=== PATIENT | male | born 1960 | race Caucasian/White ===

== ENCOUNTER 2017-12-04 14:02 | Inpatient (IN) | payer OTHER ==
[~2017-12-04] VITALS: Ht 170.2 cm; Wt 103.9 kg
--- NOTE | ~2017-12-04 | HC ---
[facility] [place] [address] [place] [address] CONSULTATION Name: SALVADOR AYALA Room #: 243-P [facility] IN M.R.#: [id number] Admission: 12/04/17 Attend Phys: Moose Cavanaugh MD Discharge: Date of : 64 Report #: [id number] THIS REPORT FOR: //name// CC: Moose Parker DATE OF SERVICE: 12/05/2017 REFERRAL PHYSICIAN: Dr. Cavanaugh. REASON FOR REFERRAL: Dyspnea. HISTORY OF PRESENT ILLNESS: The patient is a 57-year-old white male who was brought to the Emergency Room after he was found to be hypersomnolent and unresponsive at his facility. A pulmonary consultation was requested. The patient resides at a [facility]. He has known severe COPD. He was doing fairly well until the day prior. The day of presentation, he was found to be hypersomnolent and eventually unresponsive. In the ER, the patient was found to be profoundly hypercapnic with respiratory acidosis. He was placed on BiPAP. Over time, he has improved with improvement in mental status, being more weight. Otherwise, he denies any fever, night sweats or chills, chest pain, productive cough. PAST MEDICAL HISTORY: Notable for COPD, severe impairment, paranoid schizophrenia, personality disorder, history of psychosis, insomnia, tobacco abuse, hypertension, allergic rhinitis. PAST SURGICAL HISTORY: Unremarkable. ALLERGIES: PENICILLIN, REACTIONS NOT SPECIFIED. HOME MEDICATIONS: Lists are reviewed. FAMILY HISTORY: Unknown. SOCIAL HISTORY: Tobacco use as mentioned above, no alcohol use. He currently resides at the [facility]. REVIEW OF SYSTEMS: As mentioned above, otherwise 10-point system review negative. PHYSICAL EXAMINATION: [facility] [address] [place] [address] CONSULTATION Name: SALVADOR AYALA Room #: 243-P ADM IN M.R.#: [id number] Admission: 12/04/17 Attend Phys: Moose Cavanaugh MD Discharge: Date of : 64 Report #: [id number] GENERAL: He is now awake, appears mildly dyspneic. VITAL SIGNS: Temperature is 97 degrees Fahrenheit, pulse is 100, respiratory rate is 20, blood pressure 130/65 mmHg and saturation 96%. HEENT: Normocephalic, atraumatic. NECK: Supple, without any lymphadenopathy or thyromegaly. CHEST: Breath sounds are decreased and moderate expiratory wheezes. CARDIOVASCULAR: Normal S1, S2. No murmurs or gallop. There is no JVD. There is no carotid bruit. Pulses are 2+/4+ bilaterally. ABDOMEN: Obese, soft, nontender, no organomegaly or masses felt. GENITOURINARY: Deferred. RECTAL: Deferred. EXTREMITIES: There is no edema, cyanosis or clubbing. LABORATORY DATA: Chest x-ray is clear. Electrolytes unremarkable. Creatinine 0.8. WBC 7600, hemoglobin is 14, platelets are normal. Arterial blood gas on admission revealed pH 7.21, pCO2 94, pO2 70 on 5 liters of O2. IMPRESSION: 1. Bhqoh-rq-aogkuoq hypercapnic hypoxic respiratory failure in this 57-year-old white male. He has known severe pulmonary impairment and severe chronic obstructive pulmonary disease. Exacerbation of chronic obstructive pulmonary disease is likely. It is unclear if he may have underlying sleep disordered breathing. Chest x-ray is clear without obvious evidence for infectious process. 2. Bipolar disorder. 3. Tobacco abuse. RECOMMENDATION: Agree with current treatment, continue BiPAP p.r.n. The patient will benefit from outpatient evaluation for possible sleep disorders. Corticosteroids and bronchodilators along with antibiotics are recommended. DVT and GI prophylaxis is also recommended. Thank you for this consultation. <ELECTRONICALLY SIGNED> By: Sreedhar Bajwa MD 12/06/17 1654 1202 1632 Sreedhar Bajwa MD /nt
--- NOTE | ~2017-12-04 | HC ---
[facility] [place] [address] CONSULTATION Name: SALVADOR AYALA Room #: 243-P ADM IN M.R.#: [id number] Admission: 12/04/17 Attend Phys: Moose Cavanaugh MD Discharge: Date of : 64 Report #: [id number] THIS REPORT FOR: //name// CC: Moose Parker DATE OF SERVICE: 12/05/2017 HISTORY OF PRESENT ILLNESS: This is a gentleman who was admitted from [facility]. The patient has had a change in mental status that necessitated him coming to the facility for further evaluation. The ABG showed a pH of 7.21. He was unresponsive and somnolent. He has been managed for COPD exacerbation. The last few days, he has been off his psychotropic regimen. PAST PSYCHIATRIC HISTORY: The patient does have history of schizoaffective disorder. He notes he has not had hallucinations in a number of years, but has continued to panchal paranoid ideations at times. More regularly, he has had mood swings consistent with bipolar disorder. The patient does recall a suicide attempt as an adolescent when he was living in [place], [place]. There have also been periods of inpatient psychiatric treatment. More recently, he has had a public property administrator overseeing his wellbeing. PAST MEDICAL HISTORY: Chronic obstructive pulmonary disease; diabetes, which he tells me is new; hypertension. 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 History of drug use, but denies any active alcohol or substance use disorder in quite some time. Unfortunately, he is a bit frustrated with [employer]. He feels that people do not like him there and states that he believes people are taking his possessions. MENTAL STATUS EXAMINATION: male, casually dressed, stable mood, some blunting of affect. No suicidal ideation, no homicidal ideation, no hallucinations. No paranoid delusions. Insight and judgment fair. DIAGNOSIS: Schizoaffective disorder. RECOMMENDATIONS: Would restart Depakote, would try to clarify his home medication regimen as per [facility]. Typically, we will check a valproic acid level, but I imagined the days he has been off it, would have resulted in significant decrease in his level. It appears he may [facility] [address] [place] [address] CONSULTATION Name: SALVADOR AYALA Room #: 243-P [facility] IN M.R.#: [id number] Admission: 12/04/17 Attend Phys: Moose Cavanaugh MD Discharge: Date of : 64 Report #: [id number] have diabetes on the basis of the hemoglobin A1c; in which case, may want to change from Zyprexa to an agent that has less impact on insulin resistance. <ELECTRONICALLY SIGNED> By: Mike Manuel MD 12/07/17 1617 1433 1844 Mike Manuel MD /maria g
--- NOTE | ~2017-12-04 | 2DMMODE ---
[facility] [employer] [place] [address] 2 D/M-MODE ECHOCARDIOGRAM Name: SALVADOR AYALA Room #: 243-P ADM IN M.R.#: [id number] Admission: 12/04/17 Attend Phys: Moose Cavanaugh MD Discharge: Date of : 64 Date of Service: 12/07/17917 Report #: [id number] THIS REPORT FOR: //name// APPROVED REPORT Study performed: 12/07/2017 08:01:19 EXAM: Comprehensive 2D, Doppler, and color-flow Echocardiogram Patient Location: ICU Room #: 243 Status: routine BSA: 2.14 HR: 86 bpm BP: 144/99 mmHg Other Information Study Quality: Adequate Indications COPD Diabetes Dyspnea Hypertension/HDD Echo Enhancing Agent Indication: Endocardial border delineation Agent(s) / Amount(s) Used: Optison 4 cc 2D Dimensions RVDd: 39.83 mm LVEF(%): 38.42 (>50%) IVSd: 11.54 (7-11mm) LVOT Diam: 22.11 (18-24mm) LVDd: 60.46 mm PWd: 12.74 (7-11mm) Ascending Ao: 36.38 (22-36mm) LVDs: 49.00 (25-40mm) Aortic Root: 42.36 mm IVC: 20.00 mm Christie's LVEF: 38.42 % Volumes Left Atrial Volume (Systole) Single Plane 4CH: 35.45 mL Single Plane 2CH: 43.17 mL LA ESV Index: 20.00 mL/m2 Aortic Valve AoV Peak Wes.: 1.79 m/s AO Peak Gr.: 12.78 mmHg LVOT Max P.04 mmHg [facility] [place] [address] 2 D/M-MODE ECHOCARDIOGRAM Name: SALVADOR AYALA Room #: 243-P [facility] IN .R.#: [id number] Admission: 12/04/17 Attend Phys: Moose Cavanaugh MD Discharge: Date of : 64 Date of Service: 12/07/17 0918 Report #: [id number] LVOT Max V: 1.01 m/s DL Vmax: 2.16 cm2 AI Vmax: 4.38 m/s AI [place]osa: 3.09 m/s2 AI PHT: 410.36 ms Mitral Valve E/A Ratio: 0.7 MV Decel. Time: 111.99 ms MV E Max Wes.: 0.64 m/s MV A Wes.: 0.97 m/s MV PHT: 32.48 ms IVRT: 117.65 ms Pulmonary Valve PV Peak Wes.: 1.02 m/s PV Peak Gr.: 4.16 mmHg Pulmonary Vein P Vein S: 0.53 m/s P Vein A: 0.10 m/s P Vein D: 0.49 m/s P Vein A Dur.: 76.1 msec P Vein S/D Ratio: 1.08 Tricuspid Valve RAP Estimate: 5.00 mmHg Left Ventricle Left ventricle is mildly dilated. Regional wall motion is not well visualized but grossly normal. Mild concentric left ventricular hypertrophy. Left ventricular systolic function is at the lower limits of normal LVEF is 50%. Mild diastolic dysfunction is present (impaired relaxation pattern). Right Ventricle The right ventricle is normal size. The right ventricular systolic function is normal. Atria The left atrium size is normal. The right atrium size is normal. Aortic Valve Aortic valve is mildly calcified. Mild aortic regurgitation. There is no aortic valvular stenosis. Mitral Valve The mitral valve is normal in structure. Trace mitral regurgitation. [facility] [address] [place] [address] 2 D/M-MODE ECHOCARDIOGRAM Name: SALVADOR AYALA Room #: 243-P ADM IN M.R.#: [id number] Admission: 12/04/17 Attend Phys: Moose Cavanaugh MD Discharge: Date of : 64 Date of Service: 12/07/17 0918 Report #: [id number] No evidence of mitral valve stenosis. Tricuspid Valve Tricuspid valve is not well visualized. There is no tricuspid valve regurgitation noted. Pulmonic Valve The pulmonary valve is normal in structure. There is no pulmonic valvular regurgitation. Great Vessels IVC is normal in size and collapses >50% with inspiration. Pericardium There is no pericardial effusion. <Conclusion> Technically limited study Left ventricular systolic function is at the lower limits of normal Regional wall motion is not well visualized but grossly normal. LVEF is 50%. Mild diastolic dysfunction Aortic valve is mildly calcified, not stenotic. Mild aortic regurgitation The mitral valve is normal in structure. Trace mitral regurgitation. Pulmonary artery pressure could not be reliably ascertained There is no pericardial effusion. <ELECTRONICALLY SIGNED> By: Zachary Santiago MD, FACC 12/07/17917 7 7 Zachary Santiago MD, FACC /INF
--- NOTE | ~2017-12-04 | EKG ---
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 : 1960 Requested By: Salvador Cramer Order Number: [id number] MD: Kevin Benitez Measurements Intervals [place] Rate: 101 P: 33 [place]: 136 QRS: 64 QRSD: 106 T: 6 QT: 358 QTc: 465 Interpretive Statements Sinus tachycardia Borderline repolarization abnormality Baseline wander in lead(s) V5 Compared to ECG 04/25/2017 21:35:11 Sinus rhythm no longer present Poor R-wave progression no longer present ST (T wave) deviation no longer present Electronically Signed On 12-05-2017 14:26:15 CDT by Kevin Benitez [email or web address] <ELECTRONICALLY SIGNED> By: Kevin Benitez MD 12/05/17 1426 1418 1418 Kevin Benitez MD /EPI
[~2017-12-04 14:02] MED LIST: ALBUTEROL2.5 MG/0.5 INH; ALEVE220 MG PO; AMBIEN 5 MG TABL5 M1 PO; ATIVAN0.5 MG PO; BENZTROPINE MES1 MG PO; DEPAKOTE ER500 MG PO; DUONEB 2.5-0.5 M3 ML INH; HALOPERIDOL 5 MG5 MG PO; HALOPERIDOL10 MG PO; HALOPERIDOL5 MG/1 M1 IM; LORATIDINE 10 M10 M1 PO; LORAZEPAM 2MG TA2 M1 PO; LORAZEPAM 2MG2 MG/M1 IM; PREDNISONE 10 M10 MG PO; SIMETHICON CHEW80 M1 PO; SIMVASTATIN10 MG PO; TRAMADOL 50 MG50 MG; TYLENOL325 MG PO; ZYPREXA IM; ZYPREXA20 MG PO
[2017-12-04 14:03] VITALS: BP 144/99
[2017-12-04 14:28] LABS: HEMATOCRIT 42.8 % (42.0-52.0); MCH 31.4 pg (26.0-34.0); MCHC 32.7 g/dL (28.0-37.0); MCV 95.9 fL (80.0-100.0); RBC 4.47 mil/uL (4.50-6.00); RDW 16.7 % (10.5-14.5); WBC 7.6 thou/uL (4.0-11.0)
[2017-12-04 14:31] LABS: ANION GAP 1 mmol/L (7-16); BUN 13 mg/dL (7-18); CALCIUM 8.7 mg/dL (8.5-10.1); CHLORIDE 104 mmol/L (98-107); CO2 36 mmol/L (21-32); CREATININE 0.8 mg/dL (0.7-1.3); GLUCOSE 154 mg/dL (74-106); POTASSIUM 4.2 mmol/L (3.5-5.1); SODIUM 141 mmol/L (136-145)
[2017-12-04] MEDS ORDERED: VALPROIC A250 MG/51 PO ×2 (14:32→14:52)
[2017-12-04 14:41] LABS: TROPONIN-I < 0.04 ng/mL (<0.06)
[2017-12-04 14:51] LABS: BE(vivo) 5.8 mmol/L (-2 to +3); HCO3 37.4 mmol/L (22.0-26.0); PCO2 94.8 mmHg (35.0-45.0); pH 7.214 (7.360-7.450); sO2 89.2 % (92.0-98.0)
[2017-12-04] MEDS ORDERED: VALPROIC A500 MG/10 PO (14:53)
[2017-12-04 15:58] LABS: BE(vivo) 4.1 mmol/L (-2 to +3); HCO3 35.5 mmol/L (22.0-26.0); PO2 98.7 mmHg (80.0-100.0); pH 7.214 (7.360-7.450); sO2 95.7 % (92.0-98.0)
[2017-12-04 15:59] LABS: PCO2 89.9 mmHg (35.0-45.0)
[2017-12-04 20:54] VITALS: BP 126/88
[2017-12-04 21:26] VITALS: BP 128/80
[2017-12-05] VITALS (18 sets, daily range): BP systolic 112–147; BP diastolic 78–108
[2017-12-05 05:09] LABS: HEMATOCRIT 43.5 % (42.0-52.0); HEMOGLOBIN 14.4 gm/dL (14.0-18.0); MCH 31.8 pg (26.0-34.0); MCHC 33.1 g/dL (28.0-37.0); RBC 4.54 mil/uL (4.50-6.00); RDW 16.9 % (10.5-14.5); WBC 6.6 thou/uL (4.0-11.0)
[2017-12-05 05:23] LABS: CALCIUM 8.5 mg/dL (8.5-10.1); CREATININE 0.8 mg/dL (0.7-1.3)
[2017-12-05 05:28] LABS: POTASSIUM 5.3 mmol/L (3.5-5.1)
[2017-12-05 08:16] LABS: URINE BILIRUBIN NEGATIVE (Negative); URINE BLOOD NEGATIVE (Negative); URINE CLARITY CLEAR; URINE COLOR YELLOW; URINE GLUCOSE-RANDOM* 1+ (Negative); URINE KETONES NEGATIVE (Negative); URINE LEUKOCYTES NEGATIVE (Negative); URINE NITRITE NEGATIVE (Negative); URINE PROTEIN (DIPSTICK) NEGATIVE (Negative); URINE SPECIFIC GRAVITY 1.025 (1.005-1.035); URINE UROBILINOGEN 0.2 E.U./dl (0.2-1.0)
[2017-12-05 09:32] LABS: BE(vivo) 8.1 mmol/L (-2 to +3); HCO3 37.1 mmol/L (22.0-26.0); PO2 63.5 mmHg (80.0-100.0); pH 7.338 (7.360-7.450); sO2 90.1 % (92.0-98.0)
[2017-12-05 09:33] LABS: PCO2 70.6 mmHg (35.0-45.0)
[2017-12-05 13:12] LABS: GLYCOHEMOGLOBIN (HGB A1C) 7.5 % (4.8-5.6)
[2017-12-05] MEDS ORDERED: VITAMIN D250000 UNIT PO (16:49)
[2017-12-06] VITALS (24 sets, daily range): BP systolic 101–147; BP diastolic 53–122
[2017-12-06 05:13] LABS: ABSOLUTE NEUTROPHILS 8.3 thou/uL (1.4-8.2); BASOPHILS 0.2 % (0.0-2.0); HEMATOCRIT 43.8 % (42.0-52.0); HEMOGLOBIN 14.5 gm/dL (14.0-18.0); LYMPHOCYTES 10.7 % (24.0-44.0); MCH 31.1 pg (26.0-34.0); MCV 94.3 fL (80.0-100.0); PLATELET COUNT 187 thou/uL (150-400); POLYS 85.1 % (36.0-66.0); RBC 4.65 mil/uL (4.50-6.00); RDW 15.8 % (10.5-14.5); WBC 9.8 thou/uL (4.0-11.0)
[2017-12-06 05:29] LABS: CALCIUM 8.5 mg/dL (8.5-10.1); CREATININE 0.8 mg/dL (0.7-1.3); POTASSIUM 4.6 mmol/L (3.5-5.1)
[2017-12-06 05:49] LABS: BE(vivo) 6.5 mmol/L (-2 to +3); HCO3 34.4 mmol/L (22.0-26.0); PCO2 63.1 mmHg (35.0-45.0); PO2 60.7 mmHg (80.0-100.0); pH 7.354 (7.360-7.450); sO2 89.5 % (92.0-98.0)
[2017-12-07] VITALS (14 sets, daily range): BP systolic 126–150; BP diastolic 86–113
[2017-12-07 05:02] LABS: BASOPHILS 0.4 % (0.0-2.0); HEMATOCRIT 46.6 % (42.0-52.0); HEMOGLOBIN 15.5 gm/dL (14.0-18.0); LYMPHOCYTES 11.5 % (24.0-44.0); MCH 31.1 pg (26.0-34.0); MCHC 33.1 g/dL (28.0-37.0); MCV 93.9 fL (80.0-100.0); MONOCYTES 5.5 % (1.0-8.0); PLATELET COUNT 189 thou/uL (150-400); POLYS 82.6 % (36.0-66.0); RBC 4.97 mil/uL (4.50-6.00); RDW 16.7 % (10.5-14.5); WBC 7.3 thou/uL (4.0-11.0)
[2017-12-07 05:11] LABS: CALCIUM 9.1 mg/dL (8.5-10.1); CREATININE 0.8 mg/dL (0.7-1.3)
[2017-12-08 04:40] VITALS: BP 146/98
[2017-12-08 08:00] VITALS: BP 138/92
[2017-12-08] MEDS ORDERED: PREDNISONE 20 M20 MG PO (11:28)
[2017-12-08 12:00] VITALS: BP 135/94
== END 2017-12-08 14:45 | DRG 189 ==
LOC: ER 14:02 → EROBS 15:37 → ICU 15:37 → 3W 12-07 16:29
PROVIDERS: Emergency Medicine; Hospitalist; Internal Medicine Pulmonary Disease; Nurse Practitioner Acute Care
PROC: 5A09357 Assistance with Respiratory Ventilation, Less than 24 Consecutive Hours, Continuous Positive Airway Pressure (ICD-10-PCS; principal; 2017-12-04)
PROC: 5A09357 Assistance with Respiratory Ventilation, Less than 24 Consecutive Hours, Continuous Positive Airway Pressure (ICD-10-PCS; 2017-12-05)
DX: J96.21 Acute and chronic respiratory failure with hypoxia (principal); J44.1 Chronic obstructive pulmonary disease with (acute) exacerbation; E87.1 Hypo-osmolality and hyponatremia; J96.22 Acute and chronic respiratory failure with hypercapnia; I10 Essential (primary) hypertension; G47.00 Insomnia, unspecified; E78.5 Hyperlipidemia, unspecified; F31.9 Bipolar disorder, unspecified; E11.9 Type 2 diabetes mellitus without complications; F25.0 Schizoaffective disorder, bipolar type; F17.210 Nicotine dependence, cigarettes, uncomplicated; Z88.0 Allergy status to penicillin; Z79.899 Other long term (current) drug therapy
CPT/HCPCS: 10078; 10779